=== PATIENT | female | born 1995 | race Caucasian/White ===

== ENCOUNTER 2020-05-16 22:08 | Emergency (ER) | payer OTHER, SELFPAY ==
[~2020-05-16] VITALS: Ht 165.1 cm; Wt 145.1 kg
[2020-05-16 22:15] VITALS: BP 152/116
--- NOTE | 2020-05-16 22:15 | NUR ---
PT TO A/W IN TENT FOR EVALUATION. PT WEARING MASK.
--- NOTE | 2020-05-16 22:15 | NUR ---
COVID SWAB DONE AND SENT TO LAB
--- NOTE | 2020-05-16 23:42 | NUR ---
Dr. Shaikh examining patient.
[2020-05-16 23:53] VITALS: BP 152/116
== END 2020-05-16 23:53 | disposition home or self-care (01) ==
LOC: MED 22:08
DX: M79.10 Myalgia, unspecified site (principal); Z20.828 Contact with and (suspected) exposure to other viral communicable diseases
CPT/HCPCS: 81002; 81025; 99283; U0003